=== PATIENT | female | born 1955 | race Caucasian/White ===

== ENCOUNTER 2023-05-01 10:45 | Emergency (ER) | payer OTHER, MEDICAID ==
[~2023-05-01] VITALS: Ht 165.1 cm; Wt 77.1 kg
[2023-05-01 10:48] VITALS: BP_SYST 132; PULSE 82; RESP 16; TEMP 97.6; O2SAT 96
[2023-05-01] MEDS ORDERED: ONDANSETRON 4 MG ODT TAB PO ONE (11:00)
[2023-05-01 11:40] LABS: BASOPHILS % (AUTO) 0.3 % (0.0-2.0); EOSINOPHILS # (AUTO) 0.1 K/uL (0.0-0.4); EOSINOPHILS % (AUTO) 0.4 % (0.0-4.0); HEMATOCRIT 39.2 % (36-48); HEMOGLOBIN 12.6 g/dL (12.0-16.0); LYMPHOCYTES # (AUTO) 0.8 K/uL (1.0-5.5); LYMPHOCYTES % (AUTO) 5.8 % (20.5-51.5); MEAN CORPUSCULAR HEMOGLOBIN 30 pg (27-31); MEAN CORPUSCULAR HGB CONC 32 % (32-36); MEAN CORPUSCULAR VOLUME 93 fL (79.0-98.0); MONOCYTES # (AUTO) 0.9 K/uL (0.0-1.0); NEUTROPHILS # (AUTO) 12.7 K/uL (1.8-7.7); NEUTROPHILS % (AUTO) 87.5 % (40.0-70.0); PLATELET COUNT (AUTO) 285 K/uL (130-430); RED BLOOD CELL COUNT(AUTO) 4.22 MIL/uL (4.2-6.2); RED CELL DISTRIBUTION WIDTH 12.8 % (9.0-15.0); WHITE BLOOD COUNT (AUTO) 14.5 K/uL (4.8-10.8)
[2023-05-01 12:04] LABS: ANION GAP 8 (5-15); CALCIUM 8.4 mg/dL (8.4-11.0); CARBON DIOXIDE 27 mmol/L (23-29); CHLORIDE 103 mmol/L (98-107); CREATININE 0.69 mg/dL (0.55-1.30); GLUCOSE 114 mg/dL (74-106); SODIUM SERUM 138 mmol/L (136-145); UREA NITROGEN, BLOOD 22 mg/dL (8-21)
[2023-05-01 12:06] LABS: GFR AFRICAN AMERICAN 108 mL/min (>90); GFR NON AFRICAN-AMERICAN 89 mL/min (>90)
[2023-05-01 12:08] LABS: ALANINE AMINOTRANSFERASE 13 U/L (12-78); ALBUMIN 3.3 g/dL (3.4-4.8); AMYLASE 27 U/L (0-100); ASPARTATE AMINOTRANSFERASE 12 U/L (10-37); LACTATE DEHYDROGENASE 160 U/L (81-234); LIPASE 17 U/L (73-393); TOTAL BILIRUBIN 0.6 mg/dL (0.0-1.0); TOTAL PROTEIN, SERUM 6.7 g/dL (6.4-8.3)
[2023-05-01 12:10] LABS: PROTHROMBIN TIME 10.8 SECS (9.5-12.5)
[2023-05-01 12:11] LABS: ACETONE, SERUM NEGATIVE (NEGATIVE)
[2023-05-01] MEDS ORDERED: MORPHINE 4 MG INJ. 4 MG/ML VIAL IM ONE (12:45)
[2023-05-01 13:40] VITALS: BP_SYST 128; PULSE 85; RESP 16; TEMP 97.8; O2SAT 97
== END 2023-05-01 13:44 | disposition home or self-care (01) ==
LOC: SED 10:45
DX: R19.06 Epigastric swelling, mass or lump (principal); R10.13 Epigastric pain; R10.10 Upper abdominal pain, unspecified; R11.0 Nausea; I10 Essential (primary) hypertension; E78.5 Hyperlipidemia, unspecified; Z79.899 Other long term (current) drug therapy
CPT/HCPCS: 99285; 74176; 71045; 80053; 82009; 82150; 83615; 83690; 85025; 85610; 85730; 84484; 36415; 93005; 76376; 96372; 83605; 82397; Q0162; J2270